=== PATIENT | female | born 1940 | race Caucasian/White ===

== ENCOUNTER 2025-04-03 10:00 | Day surgery (SDC) | payer MEDICARE ==
[~2025-04-03] VITALS: Ht 154.9 cm; Wt 76.2 kg
[~2025-04-03 10:00] MED LIST: AMLO1TAB24 PO; CYCLOPENTOLATE 1% OPHTH SOLN 2 ML BTL OS SCH; ECOT81TA5 PO; FLURBIPROFEN 0.03% OPHTH SOLN 2.5 ML OS SCH; GABA-1172 PO; LISI20TA35 PO; LR 1,000 ML IV SCH; OXYB5TAB14 PO; PHENYLEPHRINE 2.5% OPHTH SOL 2ML OS SCH; TETRACAINE 0.5% OPHTH SOLN 4ML OS SCH
[2025-04-03] MEDS ORDERED: MIDAZOLAM INJ 2 MG/2 ML VIAL As Ordered ONE (10:47)
[2025-04-03] MEDS: LIDOCAINE 1% SDV 5 ML VIAL As Ordered ONE (12:06)
[2025-04-03] MEDS: CEFUROXIME 1 MG/0.1 ML INTRACAMERAL INJ As Ordered ONE (12:06)
[2025-04-03 12:25] VITALS: BP 131/68; TEMP 96.4; O2SAT 92
== END 2025-04-03 12:42 | disposition home or self-care (01) ==
LOC: M SDC 10:00
PROVIDERS: ATTEND Ophthalmology
DX: H25.12 Age-related nuclear cataract, left eye (principal); I10 Essential (primary) hypertension; Z79.899 Other long term (current) drug therapy
CPT/HCPCS: 66984; J0697; J2250; J3010; V2632